=== PATIENT | female | born 1955 | race Caucasian/White ===

== ENCOUNTER 2017-02-06 10:35 | Inpatient (IN) | payer BC, OTHER ==
[2017-02-06] VITALS (10 sets, daily range): BP systolic 129–161; BP diastolic 66–97
[~2017-02-06] VITALS: Ht 172.7 cm; Wt 68.8 kg
[~2017-02-06 10:35] MED LIST: ANORO ELLIPTA1 EACH IH; CEFTIN250 MG PO; CYMBALTA30 MG PO; CYMBALTA60 MG PO; DILAUDID8 MG PO; GABAPENTIN400 MG PO; KLONOPIN1 MG PO; LORAZEPAM0.5 MG PO; MORPHINE SULFAT60 MG PO; NEXIUM40 MG PO; ONDANSETRON HCL8 MG PO; PAXIL40 MG PO; POMALYST4 MG PO; PRILOSEC40 MG PO; SIMVASTATIN40 MG PO; WELLBUTRIN100 MG PO; ZOVIRAX400 MG PO
[2017-02-06 11:28] LABS: ADD MIUA? YES; BILIRUBIN SMALL; BLOOD SMALL; COLOR AMBER ((YELLOW)); GLUCOSE (STRIP) 50; KETONES 5; LEUKOCYTES LARGE; NITRITE POSITIVE; PROTEIN (STRIP) 30; SPECIFIC GRAVITY 1.026 (1.000-1.030)
[2017-02-06 11:59] LABS: BACTERIA 3+ /HPF; EPITHELIAL CELLS NONE SEEN /HPF; MUCUS 4+ /LPF; RED BLOOD CELLS 15-20 /HPF (0-5); UCUL ADDED? YES; WHITE BLOOD CELLS TNTC /HPF (0-5)
[2017-02-06 12:13] LABS: CHLORIDE 107 mEq/L (99-109); POTASSIUM 3.3 mEq/L (3.7-5.4); SODIUM 135 mEq/L (136-147)
[2017-02-06 12:15] LABS: GLUCOSE 127 mg/dL (70-99)
[2017-02-06 12:17] LABS: ANION GAP 10 MEQ/L (2-14); TOTAL BILIRUBIN 1.1 mg/dL (0.0-1.0)
[2017-02-06 12:19] LABS: ALKALINE PHOSPHATASE 64 IU/L (3-129); GFR ESTIMATE (CALCULATED) > 59 mL/min/
[2017-02-06 12:20] LABS: UREA NITROGEN (BUN) 30 mg/dL (9-23)
[2017-02-06 12:21] LABS: EOSINOPHIL (%) 0 % (0-5); HEMATOCRIT 19.1 % (36.0-46.0); IMMATURE GRANULOCYTE COUNT 0.1 K/uL; INSTRUMENT ABS NEUTROPHIL CT 4.1 K/uL; LYMPHOCYTE COUNT 0.8 K/uL (1.0-2.8); MCH 34.7 PG (29.0-34.0); MCHC 34.6 G/DL (30.0-36.0); MCV 100.5 FL (83-99); MEAN PLAT.VOLUME 11.4 uM^3 (9.5-12.4); MONOCYTE (%) 13.6 % (3-12); MONOCYTE COUNT 0.8 K/uL (0-0.8); NEUTROPHIL (%) 70.9 % (45-76); NEUTROPHIL COUNT 4.1 K/uL (1.8-6.4); NRBC (%) 2.3 /100 WBC (0-0); PLATELET COUNT 147 K/uL (156-360); RBC DIS.WIDTH-CV 16.2 % (11.8-14.6); RBC DIS.WIDTH-SD 58.4 % (39-53); WHITE BLOOD COUNT 5.7 K/uL (4.1-10.2)
[2017-02-06 12:25] LABS: TROP-I INTERPRETATION NEGATIVE; TROPONIN-I < 0.01 ng/mL (0.0-0.30)
[2017-02-06] MEDS ORDERED: CYMBALTA30 MG PO (13:20)
[2017-02-06] MEDS ORDERED: TRANSDERM-SCO1 PATCH TD (13:21)
[2017-02-06] MEDS ORDERED: B-12 COMPL1000 MCG/1 IM (13:23)
[2017-02-06] MEDS ORDERED: DECADRON4 MG PO (13:24)
[2017-02-06] MEDS ORDERED: CARAFATE1 GM PO (13:25)
[2017-02-06] MEDS ORDERED: ELIQUIS5 MG PO (13:26)
[2017-02-06] MEDS ORDERED: NEXIUM40 MG PO (13:26)
[2017-02-06] MEDS ORDERED: DILAUDID2 MG PO (13:27)
[2017-02-06] MEDS ORDERED: DUONEB 2.5-0.5 M3 ML AEROSOL (13:28)
[2017-02-06] MEDS ORDERED: ZOFRAN8 MG PO (13:28)
[2017-02-06] MEDS ORDERED: TYLENOL REGULA325 MG PO (13:28)
[2017-02-06] MEDS ORDERED: PHENERGAN25 MG PR (13:29)
[2017-02-06] MEDS ORDERED: SUPPOSITORY1 EACH PR (13:30)
[2017-02-06] MEDS ORDERED: MILK OF MAGN PO (13:30)
[2017-02-06] MEDS ORDERED: ENEMA133 M2 PR (13:31)
[2017-02-07] VITALS (7 sets, daily range): BP systolic 133–151; BP diastolic 71–84
[2017-02-07 08:29] LABS: EOSINOPHIL (%) 0 % (0-5); HEMATOCRIT 34.3 % (36.0-46.0); IMMATURE GRANULOCYTE (%) 1.2 % (0.0-0.7); IMMATURE GRANULOCYTE COUNT 0.1 K/uL; INSTRUMENT ABS NEUTROPHIL CT 6.8 K/uL; LYMPHOCYTE COUNT 0.7 K/uL (1.0-2.8); MCH 32.2 PG (29.0-34.0); MONOCYTE (%) 10.5 % (3-12); MONOCYTE COUNT 0.9 K/uL (0-0.8); NEUTROPHIL (%) 80.3 % (45-76); NEUTROPHIL COUNT 6.8 K/uL (1.8-6.4); NRBC (%) 1.6 /100 WBC (0-0); RBC DIS.WIDTH-CV 18.7 % (11.8-14.6); RBC DIS.WIDTH-SD 61.1 % (39-53)
[2017-02-07 08:30] LABS: RED BLOOD COUNT 3.73 M/uL (3.80-5.20); WHITE BLOOD COUNT 8.5 K/uL (4.1-10.2)
[2017-02-07 08:53] LABS: HEMATOLOGY COMMENT 1 SMEAR COMPATIBLE; MEAN PLAT.VOLUME 9.8 uM^3 (9.5-12.4); PLAT.SUFFICIENCY DECREASED
[2017-02-07 08:59] LABS: PLATELET COUNT 87 K/uL (156-360)
[2017-02-07 13:42] LABS: ANION GAP 10 MEQ/L (2-14); CHLORIDE 109 MEQ/L (99-109); GFR ESTIMATE (CALCULATED) > 59 mL/min/; GLUCOSE 174 mg/dL (70-99); IRON 158 MCG/DL (35-150); POTASSIUM 3.5 MEQ/L (3.7-5.4); SAMPLE HEMOLYSIS CHECK 0; SAMPLE ICTERIC CHECK 0; SAMPLE LIPEMIA CHECK 0; SODIUM 136 MEQ/L (136-147); UREA NITROGEN (BUN) 24 mg/dL (9-23)
[2017-02-07 14:02] LABS: LACTATE DEHYDROGENASE 220 IU/L (20-246)
[2017-02-08 03:50] VITALS: BP 135/70
[2017-02-08 06:51] LABS: TROP-I INTERPRETATION NEGATIVE; TROPONIN-I < 0.01 ng/mL (0.0-0.30)
[2017-02-08 07:13] VITALS: BP 125/73
[2017-02-08 07:50] LABS: ALKALINE PHOSPHATASE 63 IU/L (3-129); ANION GAP 11 MEQ/L (2-14); CHLORIDE 108 MEQ/L (99-109); GFR ESTIMATE (CALCULATED) > 59 mL/min/; POTASSIUM 3.4 MEQ/L (3.7-5.4); SAMPLE HEMOLYSIS CHECK 0; SAMPLE ICTERIC CHECK 0; SAMPLE LIPEMIA CHECK 0; SODIUM 138 MEQ/L (136-147); TOTAL BILIRUBIN 1.6 MG/DL (0.0-1.0); UREA NITROGEN (BUN) 19 mg/dL (9-23)
[2017-02-08 07:56] LABS: GLUCOSE 112 mg/dL (70-99)
[2017-02-08 08:02] LABS: EOSINOPHIL (%) 0.1 % (0-5); HEMATOCRIT 27.9 % (36.0-46.0); IMMATURE GRANULOCYTE COUNT 0.1 K/uL; INSTRUMENT ABS NEUTROPHIL CT 5.5 K/uL; MCH 32.7 PG (29.0-34.0); MCHC 34.8 G/DL (30.0-36.0); MCV 93.9 FL (83-99); MEAN PLAT.VOLUME 10.7 uM^3 (9.5-12.4); MONOCYTE (%) 10.8 % (3-12); MONOCYTE COUNT 0.8 K/uL (0-0.8); NEUTROPHIL COUNT 5.5 K/uL (1.8-6.4); PLATELET COUNT 105 K/uL (156-360); RBC DIS.WIDTH-CV 18.6 % (11.8-14.6); RBC DIS.WIDTH-SD 63.1 % (39-53); WHITE BLOOD COUNT 7.3 K/uL (4.1-10.2)
[2017-02-08 08:21] LABS: RED BLOOD COUNT 2.97 M/uL (3.80-5.20)
[2017-02-08 15:16] VITALS: BP 110/70
[2017-02-08 19:02] VITALS: BP 120/58
[2017-02-09] VITALS (7 sets, daily range): BP systolic 112–132; BP diastolic 60–72
[2017-02-09 08:38] LABS: EOSINOPHIL (%) 0.4 % (0-5); HEMATOCRIT 25.3 % (36.0-46.0); IMMATURE GRANULOCYTE COUNT 0.1 K/uL; INSTRUMENT ABS NEUTROPHIL CT 5.6 K/uL; LYMPHOCYTE COUNT 0.7 K/uL (1.0-2.8); MCH 33.3 PG (29.0-34.0); MCHC 35.2 G/DL (30.0-36.0); MCV 94.8 FL (83-99); MEAN PLAT.VOLUME 11.5 uM^3 (9.5-12.4); MONOCYTE (%) 8.8 % (3-12); MONOCYTE COUNT 0.6 K/uL (0-0.8); NEUTROPHIL (%) 79.3 % (45-76); NEUTROPHIL COUNT 5.6 K/uL (1.8-6.4); NRBC (%) 0.4 /100 WBC (0-0); PLATELET COUNT 87 K/uL (156-360); RBC DIS.WIDTH-CV 18.2 % (11.8-14.6); RBC DIS.WIDTH-SD 62.4 % (39-53); RED BLOOD COUNT 2.67 M/uL (3.80-5.20); WHITE BLOOD COUNT 7.1 K/uL (4.1-10.2)
[2017-02-09 09:10] LABS: ANION GAP 10 MEQ/L (2-14); CHLORIDE 106 MEQ/L (99-109); GFR ESTIMATE (CALCULATED) > 59 mL/min/; GLUCOSE 103 mg/dL (70-99); POTASSIUM 3.5 MEQ/L (3.7-5.4); SAMPLE HEMOLYSIS CHECK 0; SAMPLE ICTERIC CHECK 0; SAMPLE LIPEMIA CHECK 0; SODIUM 136 MEQ/L (136-147); UREA NITROGEN (BUN) 10 mg/dL (9-23)
[2017-02-10 03:37] VITALS: BP 138/65
[2017-02-10 08:09] VITALS: BP 118/61
[2017-02-10 11:52] VITALS: BP 116/60
[2017-02-10 16:32] VITALS: BP 117/69
[2017-02-11 07:33] LABS: ANION GAP 9 MEQ/L (2-14); CHLORIDE 105 MEQ/L (99-109); GFR ESTIMATE (CALCULATED) > 59 mL/min/; GLUCOSE 89 mg/dL (70-99); POTASSIUM 3.7 MEQ/L (3.7-5.4); SAMPLE HEMOLYSIS CHECK 0; SAMPLE ICTERIC CHECK 0; SAMPLE LIPEMIA CHECK 0; SODIUM 136 MEQ/L (136-147); UREA NITROGEN (BUN) 9 mg/dL (9-23)
[2017-02-11 08:24] VITALS: BP 117/64
[2017-02-11 17:25] VITALS: BP 125/66
[2017-02-11 22:10] VITALS: BP 134/84
[2017-02-12 00:37] VITALS: BP 133/79
[2017-02-12 07:08] VITALS: BP 142/80
[2017-02-12 07:25] LABS: HEMATOCRIT 22.8 % (36.0-46.0); MCH 33.2 PG (29.0-34.0); MCHC 34.2 G/DL (30.0-36.0); RBC DIS.WIDTH-SD 62.3 % (39-53); RED BLOOD COUNT 2.35 M/uL (3.80-5.20)
[2017-02-12 07:29] LABS: WHITE BLOOD COUNT 2.9 K/uL (4.1-10.2)
[2017-02-12 09:02] LABS: ANION GAP 8 MEQ/L (2-14); CHLORIDE 105 MEQ/L (99-109); GFR ESTIMATE (CALCULATED) > 59 mL/min/; GLUCOSE 90 mg/dL (70-99); POTASSIUM 3.7 MEQ/L (3.7-5.4); SAMPLE HEMOLYSIS CHECK 0; SAMPLE ICTERIC CHECK 0; SAMPLE LIPEMIA CHECK 0; SODIUM 135 MEQ/L (136-147); UREA NITROGEN (BUN) 9 mg/dL (9-23)
[2017-02-12 09:21] LABS: EOSINOPHIL (%) 2.4 % (0-5); EOSINOPHIL COUNT 0.1 K/uL (0-0.3); IMMATURE GRANULOCYTE (%) 0.7 % (0.0-0.7); INSTRUMENT ABS NEUTROPHIL CT 1.8 K/uL; LYMPHOCYTE COUNT 0.6 K/uL (1.0-2.8); MEAN PLAT.VOLUME 12.3 uM^3 (9.5-12.4); MONOCYTE (%) 15.4 % (3-12); MONOCYTE COUNT 0.5 K/uL (0-0.8); NEUTROPHIL (%) 62.3 % (45-76); NEUTROPHIL COUNT 1.8 K/uL (1.8-6.4); PLATELET COUNT 58 K/uL (156-360)
[2017-02-12 15:51] VITALS: BP 148/75
[2017-02-13 00:02] VITALS: BP 127/68
[2017-02-13 06:10] LABS: HEMATOCRIT 22.5 % (36.0-46.0); MCH 33.9 PG (29.0-34.0); MCHC 35.1 G/DL (30.0-36.0); MCV 96.6 FL (83-99); MEAN PLAT.VOLUME 11.2 uM^3 (9.5-12.4); PLATELET COUNT 52 K/uL (156-360); RBC DIS.WIDTH-CV 17.8 % (11.8-14.6); RBC DIS.WIDTH-SD 60.9 % (39-53); RED BLOOD COUNT 2.33 M/uL (3.80-5.20); WHITE BLOOD COUNT 2.4 K/uL (4.1-10.2)
[2017-02-13 06:59] VITALS: BP 169/86
[2017-02-13 15:25] VITALS: BP 156/94
[2017-02-13 23:01] VITALS: BP 127/70
[2017-02-14 07:55] VITALS: BP 140/80
[2017-02-14 16:00] VITALS: BP 135/75
[2017-02-14 19:25] VITALS: BP 103/59
[2017-02-14 23:20] VITALS: BP 133/82
[2017-02-15 08:00] VITALS: BP 110/67
[2017-02-15 18:08] VITALS: BP 131/75
[2017-02-16 01:09] VITALS: BP 123/72
[2017-02-16 08:00] VITALS: BP 150/11
[2017-02-16 11:46] VITALS: BP 146/92
[2017-02-16 13:14] VITALS: BP 110/78
[2017-02-16 23:55] VITALS: BP 159/79
[2017-02-17 06:47] VITALS: BP 158/87
[2017-02-17 16:00] VITALS: BP 110/63
[2017-02-17] MEDS ORDERED: CYANOCOBALAM1000 MCG PO (18:10)
[2017-02-17] MEDS ORDERED: VITAMIN D-32000 UNI2 PO (18:10)
[2017-02-17] MEDS ORDERED: FOLIC ACID1 MG PO (18:10)
[2017-02-17] MEDS ORDERED: LYRICA50 MG PO (18:10)
[2017-02-17] MEDS ORDERED: LORAZEPAM0.5 MG PO (18:10)
[2017-02-17] MEDS ORDERED: AMITRIPTYLINE H25 MG PO (18:10)
== END 2017-02-17 20:06 | DRG 689 ==
LOC: EME 10:35 → EDOF 14:00 → 5EAST 14:00
PROVIDERS: Emergency Medicine; Internal Medicine
PROC: 30233N1 Transfusion of Nonautologous Red Blood Cells into Peripheral Vein, Percutaneous Approach (ICD-10-PCS; principal; 2017-02-06)
DX: N39.0 Urinary tract infection, site not specified (principal); G93.41 Metabolic encephalopathy; M62.81 Muscle weakness (generalized); C90.01 Multiple myeloma in remission; H49.23 Sixth [abducent] nerve palsy, bilateral; G62.0 Drug-induced polyneuropathy; D63.8 Anemia in other chronic diseases classified elsewhere; F17.210 Nicotine dependence, cigarettes, uncomplicated; M21.379 Foot drop, unspecified foot; D61.818 Other pancytopenia; E53.8 Deficiency of other specified B group vitamins; B96.20 Unspecified Escherichia coli [E. coli] as the cause of diseases classified elsewhere; F41.9 Anxiety disorder, unspecified; F32.9 Major depressive disorder, single episode, unspecified; Z94.84 Stem cells transplant status; H26.9 Unspecified cataract; Z86.711 Personal history of pulmonary embolism; Z98.84 Bariatric surgery status
CPT/HCPCS: 70450; 70551; 71010; 80048; 80053; 81003; 82272; 82306; 82607; 82746; 83540; 83605; 83615; 84443; 84466; 84484; 85025; 85027; 86900; 86901; 86920; 87040; 87077; 87086; 92526 GN; 92610 GN; 93005; 93971; 94640; 94640 76; 95819; 99202; 99281; 99285; J0636; J0696; J3420; J3480; J7030; J7050; J8540; P9016